=== PATIENT | female | born 1985 | race American Indian/Alaskan Native ===

== ENCOUNTER 2025-01-10 06:58 | Emergency (ER) | payer MEDICAID, SELFPAY ==
[2025-01-10 07:00] VITALS: BMI 37.4
--- NOTE | 2025-01-10 07:24 | XR_ITS ---
Examination: Hand, right 3 views Technique: Hand AP, oblique, lateral 3 views Date and time of exam: January 10, 2025 0630 hrs. Indications: Patient fell today with injury to the hand, hand pain Findings: Acute comminuted fractures proximal aspect proximal phalanx fifth digit, minimal offset on the oblique view No foreign body No dislocation Impression: Acute comminuted fractures proximal phalanx fifth digit
[2025-01-10 07:29] VITALS: BP 125/81; PULSE 89; RESP 18; TEMP 36.7; O2SAT 99
--- NOTE | 2025-01-10 07:47 | EDNOTE_ITS ---
ED Fall Injury RME/HPI General Chief Complaint: Fall Stated Complaint: RT 5TH DIGIT INJURY Time Seen by Provider: 01/10/25 07:03 Arrival date/time: 01/10/25 06:58 39-year-old female presents to the emergency department today stating that she had a trip and fall last night patient reports injury to the left side of her face as well as her right hand. Limitations: no limitations Related Data Previous Rx's ?Medication ?Instructions ?Recorded pantoprazole 40 mg tablet,delayed 40 mg PO BID 30 days #60 tabs 11/07/23 release cephalexin 500 mg capsule 500 mg PO BID 5 days #10 cap s 01/10/25 hydrocodone 5 mg-acetaminophen 325 1 tab PO BID PRN pa in #10 tabs 01/10/25 mg tablet ibuprofen 800 mg tablet 800 mg PO TID PRN pain #30 t abs 01/10/25 Allergies Allergy/AdvReac Type Severity Reaction Status Date / Time bee venom protein (honey bee) Allergy Severe Swelling Unverified 11/08/23 09:01 of Lip/Tongue/Throat blueberry Allergy Severe SWELLING,HI Verified 11/05/23 10:20 VES Review of Systems Review of Systems Systems Reviewed: All systems reviewed, normal except as documented Constitutional Constitutional: Reports system reviewed and no additional complaints, except as documented, Denies fever(s) and Denies headache(s) Eyes Eyes: Reports system reviewed and no additional complaints, except as documented and Denies blurry vision ENT Ears, Nose, Mouth, and Throat: Reports system reviewed and no additional complaints, except as documented, Denies headache(s), Denies nasal congestion and Denies nasal discharge Cardiovascular Cardiovascular: Reports system reviewed and no additional complaints, except as documented, Denies chest pain and Denies dyspnea Respiratory Respiratory: Reports system reviewed and no additional complaints, except as documented, Denies chest congestion, Denies cough and Denies dyspnea Gastrointestinal Gastrointestinal: Reports system reviewed and no additional complaints, except as documented and Denies abdominal pain Musculoskeletal Musculoskeletal: Reports system reviewed and no additional complaints, except as documented, Reports arthralgias, Reports deformity, Reports joint swelling, Denies numbness, Reports stiffness and Denies tingling Integumentary/Breasts Skin/Breast: Reports system reviewed and no additional complaints, except as documented and Denies rash Neurologic Neurologic: Reports system reviewed and no additional complaints, except as documented, Reports as per HPI, Denies headache(s), Denies numbness and Denies tingling Past Medical History Past Medical History NEUROLOGIC: Negative Neurological Disorders or Seizures CARDIAC: Negative Cardiac Disorders or Congestive Heart Failure RESPIRATORY: Positive Asthma; Negative Chronic Obstructive Pulmonary Disease (COPD) GASTROINTESTINAL: Positive Gastrointestinal Disorders and Ulcer GENITOURINARY: Negative Renal Disease REPRODUCTIVE: Positive Previous Pregnancies MUSCULOSKELETAL: Negative Musculoskeletal Disorders ENDOCRINE: Negative Diabetes Mellitus Type 1 or Diabetes Mellitus Type 2 HEMATOLOGIC: Negative Sickle Cell Disease OTHER HISTORY: Positive Hospitalization; Negative Blood Transfusions or Anesthesia Reactions Social History SMOKING STATUS: Never smoker SUBSTANCE USE: does not use ED Exam General Limitations: Present no limitations General appearance: Present alert and in no apparent distress Expanded Head Exam Head exam physical: Present abrasion Head image: 2 1. Abrasion Eye Eye exam: Present normal appearance, PERRL and EOMI ENT ENT exam: Present normal exam, normal oropharynx and mucous membranes moist Neck Neck exam: Present normal inspection, full ROM and trachea midline Chest Chest inspection: Present normal inspection and symmetric chest wall rise Respiratory Respiratory exam: Present normal lung sounds bilaterally Cardiovascular Cardiovascular exam: Present regular rate, normal rhythm and normal heart sounds Abdominal Exam Abdominal exam: Present soft and normal bowel sounds Extremities Exam Extremities exam: Present tenderness, normal capillary refill and joint swelling Back Exam Back exam: Present normal inspection and full ROM Neurological Exam Neurological exam: Present alert, oriented X3 and CN II-XII intact Psychiatric Psychiatric exam: Present normal affect and normal mood Skin Skin exam: Present warm, dry and other (Abrasions to hands and face) Course Quality Measures none Orders Category Date Time Status XR hand comp RT min 3V Stat Exams 01/10/25 07:24 Completed HYDROcodone*/APAP 5/325 [[place] 5/325] Med 01/10/25 07:24 Discontinued 1 tab PO X1 ONE Tet,Diphth,Pertuss(Acell)-Tdap [Boostrix Vacc] Med 01/10/25 07:24 Discontinued 0.5 ml IMI .ONCE ONE Vital Signs Vital signs: Vital Signs Temperature 98.1 F 01/10/25 07:29 Pulse Rate 89 01/10/25 07:29 Respiratory Rate 18 01/10/25 07:29 Blood Pressure 125/81 01/10/25 07:29 Pulse Oximetry (%) 99 01/10/25 07:29 Oxygen Delivery Method Room Air 01/10/25 07:29 O2 saturation 99% room air within the limits Procedures -ED Splint Fabrication: Pre-Fabricated Type: Finger Protector Reason for Splint: Optimal Positioning and Pain Management Site condition: Abrasion(s) Circulation Distal to Splint: Yes Movement Distal to Splint: Yes Tolerance: Tolerates Well Fall MDM Narrative MDM Narrative:: 39-year-old female presents to the emergency department today stating that she had a trip and fall last night patient reports injury to the left side of her face as well as her right hand. On exam patient is mild angulation right hand fifth digit abrasions to the right hand left side of the face Patient has no abnormal neurological findings patient reports no headache dizziness weakness and patient walks with steady gait Imaging of right hand obtained consistent with fracture right hand fifth digit Patient was given pain medication placed in a splint Patient discharged home in no distress to follow-up with primary care doctor in the next 24 to 48 hours and for any worsening symptoms to return to the ER immediately Patient data External records reviewed:: [facility] previous records Clinical information provided by:: patient Social determinants that could affect healthcare access:: none Patient has the following chronic illnesses:: None How is presenting disease/condition affected by chronic disease/condition?: no chronic disease Evaluation data The following diagnostics were reviewed and interpreted by me:: radiology exam(s) Lab and/or radiology exams considered but not ordered:: Radiology obtained Interpretation Summary: Reviewed by me Medications / Prescriptions Medications or Prescriptions considered but not ordered:: Given Medication administrations:: Medication Administration History Discontinued Medications Hydrocodone Bitart/Acetaminophen (Hydrocodone/Apap 5/325 Tablet) 1 tab PO X1 ONE Stop: 01/10/25 07:25 Last Admin: 01/10/25 07:55 Dose: 1 tab Documented By: PATRICK Diphtheria/Tetanus/Acell Pertussis (Diphth,Pertuss(Acell),Tet Vac 0.5 Ml Syr- Adult) 0.5 ml IMi .ONCE ONE Stop: 01/10/25 07:25 Last Admin: 01/10/25 07:55 Dose: 0.5 ml Documented By: PATRICK Given Consultations Consultation(s) initiated? (list below): No Diagnosis Fall Differential Diagnosis: other (Laceration, abrasion, fracture) Most likely diagnosis given after review of the tests above:: Finger fracture Admission Indicated Admission indicated?: not indicated Admission Request Was there a request for admission?: No Disposition Plan Disposition Plan: Discharge Discharge Attestation Discharge Attestation: The patient and all family members were given an opportunity to ask questions and understood the discharge instructions. Discharge instructions specifically effects, indications for sooner follow up or return to the emergency department, and the expected course of current diagnosis. Patient condition: Stable Discharge Plan Plan Patient Disposition: HOME (Self Care) Disposition Comment: Stable Prescriptions/Referrals Prescriptions/Med Rec: New ibuprofen 800 mg tablet 800 mg PO TID PRN (Reason: pain) Qty: 30 0RF hydrocodone-acetaminophen 5-325 mg tablet 1 tab PO BID MDD 10 PRN (Reason: pain) Qty: 10 0RF cephalexin 500 mg capsule 500 mg PO BID 5 Days Qty: 10 0RF No Action pantoprazole 40 mg tablet,delayed release (DR/EC) 40 mg PO BID 30 Days Qty: 60 1RF Referrals: No Primary/Family,Physician [Primary Care Provider] - In 1 week Problem List Clinical Impression: Fracture of finger of right hand Patient/Caregiver Discharge Instructions Education Materials: ED Fracture, Finger, Closed Additional Instructions: Please follow up with your primary care doctor in the next 24-48hrs for any worsening symptoms return here immediately Print Language: Tongan Stand Alone Forms: Myriam Award Info., Work/School Release, Patient Portal Info Letter RALPH/JEROME Supervising Physician RALPH/JEROME Supervising Physician: Dr. power
[2025-01-10] MEDS: DIPHTH,PERTUSS(ACELL),TET VAC 0.5 ML SYR- ADULT IMi (07:55)
[2025-01-10] MEDS: HYDROcodone/APAP 5/325 TABLET 1 TAB PO (07:55)
== END 2025-01-10 08:07 | disposition home or self-care (01) ==
PROVIDERS: Emergency Provider Family Medicine
DX: S62.616A Displaced fracture of proximal phalanx of right little finger, initial encounter for closed fracture (principal); W01.0XXA Fall on same level from slipping, tripping and stumbling without subsequent striking against object, initial encounter; Z23 Encounter for immunization
CPT/HCPCS: 73130; 90471; 90715; 99283; A9270

== ENCOUNTER 2025-02-17 06:26 | Emergency (ER) | payer MEDICAID, SELFPAY ==
[2025-02-17 06:27] VITALS: BMI 42.5
[2025-02-17 06:44] VITALS: BP 114/83; PULSE 94; RESP 17; TEMP 37.1; O2SAT 97
--- NOTE | 2025-02-17 06:58 | PD.EDRME ---
Rapid Medical Screening Exam RME Arrival date/time: 02/17/25 06:26 This is a 39 year old female with complaints of abdominal pain, n/v/d started 02/12/25. Pt states she was seen by PMD and was dx with norovirus. Pt c/o of diffuse abd pain. Pt has a hx of c section. I have greeted and performed a focused initial assessment of this patient. Initial appropriate labs ordered at this time. A comprehensive ED assessment and evaluation of the patient and analysis of all test and completion of medical decision making process will be conducted by additional ED provider. Chief Complaint: Abdominal Pain Time Seen by Provider: 02/17/25 06:42 Vital signs: Vital Signs Temperature 98.8 F 02/17/25 06:44 Pulse Rate 94 02/17/25 06:44 Respiratory Rate 17 02/17/25 06:44 Blood Pressure 114/83 02/17/25 06:44 Pulse Oximetry (%) 97 02/17/25 06:44 Oxygen Delivery Method Room Air 02/17/25 06:44
[2025-02-17 07:29] LABS: Basophils % (Auto) 0 % (0-2.5); Eosinophils # (Auto) 0.3 Thou/mm3 (0.0-0.5); Eosinophils % (Auto) 3 % (0-10); Hematocrit 31.6 % (36.0-46.0); Hemoglobin 9.3 g/dL (12.0-16.0); Immature Granulocytes % (Auto) 0 % (0-0); Immature Granulocytes Auto 0.03 Thou/mm3 (0.00-0.00); Lymphocytes # (Auto) 2.2 Thou/mm3 (1.0-4.8); Lymphocytes % (Auto) 23 % (10-50); Mean Corpuscular HGB Conc 29.4 g/dl (31.0-37.0); Mean Corpuscular Hemoglobin 20.4 pg (25.0-35.0); Mean Corpuscular Volume 70 fL (80-100); Monocytes # (Auto) 0.5 Thou/mm3 (0.0-0.8); Monocytes % (Auto) 5 % (0-12); Neutrophils # (Auto) 6.5 Thou/mm3 (1.8-7.7); Neutrophils % (Auto) 69 % (37-80); Nucleated Red Blood Cell % 0 /100 WBC (0); Platelet Count 391 Thou/mm3 (140-440); RDW Standard Deviation 41.8 fL (36.4-46.3); Red Blood Count 4.55 Miln/mm3 (4.00-5.20); White Blood Count 9.6 Thou/mm3 (3.6-11.0)
[2025-02-17 07:46] LABS: Alanine Aminotransferase 19 U/L (10-49); Albumin, Serum 4.5 gm/dL (3.5-5.0); Albumin/Globulin Ratio 1.5 (1.2-2.2); Alkaline Phosphatase 70 U/L (46-116); Anion Gap 9 (7-16); Aspartate Amino Transferase 14 U/L (0-34); BUN/Creatinine Ratio 9 Ratio (12-20); Bilirubin,Total 0.6 mg/dL (0.3-1.2); Blood Urea Nitrogen 10 mg/dL (9-23); Calcium 8.9 mg/dL (8.3-10.6); Calcium (Corrected) 8.9 mg/dL (8.5-10.1); Carbon Dioxide 23.1 mMol/L (20.0-31.0); Chloride 104 mMol/L (98-107); Creatinine (Component) 1.1 mg/dL (0.6-1.3); Estimated Creatinine Clearance 75.3 mL/min (>60); Glucose 102 mg/dL (74-106); Lipase 33 U/L (12-53); Osmolality,Calculated 270 (275-295); Potassium 3.8 mMol/L (3.4-5.1); Sodium 136 mMol/L (136-145); Total Protein 7.5 gm/dL (5.7-8.2); eGFR > 60 See Note
[2025-02-17 07:53] LABS: HCG,Qualitative Serum Negative
[2025-02-17 08:29] LABS: Collection Type, Urine Voided
[2025-02-17 08:50] LABS: Amorphous Crystals,Urine Present (Absent); Bacteria,Urine 1+; Bilirubin,Urine Negative (Negative); Blood,Urine Trace (Negative); Clarity,Urine Turbid (Clear/Hazy); Color,Urine Yellow (Lt Yel-Yel); Glucose, Urine Negative (Negative); Ketones,Urine Negative (Negative); Leukocyte Esterase,Urine Positive (Negative); Nitrite,Urine Negative (Negative); Protein,Urine Trace (Neg - Trace); RBC,Urine 32 /hpf (0-3); Squamous Epithelial Cell,Urine 10 /hpf (0-5); Urobilinogen,Urine Negative mg/dL (0.0-1.0); WBC,Urine 105 /hpf (0-5)
[2025-02-17 08:57] LABS: Culture Indicated,Urine Yes
[2025-02-17 11:21] VITALS: BP 129/86; PULSE 77; RESP 18; TEMP 36.8; O2SAT 99
--- NOTE | 2025-02-17 12:41 | EDNOTE_ITS ---
<Statement entered by Judy Batista MD - 02/17/25 14:25> As co-signing physician, I was present and available for consult prn. I concur with the plan and care as documented by the midlevel provider. ED Abdominal Pain RME/HPI General Chief Complaint: Abdominal Pain Stated complaint: VOMITING, DIARRHEA ABD PAIN Time seen by provider: 02/17/25 06:42 Arrival date/time: 02/17/25 06:26 RME / HPI RME / HPI narrative: 39-year-old female patient came in for evaluation regarding diarrhea. Patient's been having diarrhea for the last 5 days, associated with nausea vomiting nonbloody. Denies any fevers denies any other complaints was seen by PCP and was diagnosed with norovirus. No medications taken prior to ER visit. Related Data Previous Rx's ?Medication ?Instructions ?Recorded pantoprazole 40 mg tablet,delayed 40 mg PO BID 30 days #60 tabs 11/07/23 release hydrocodone 5 mg-acetaminophen 325 1 tab PO BID PRN pa in #10 tabs 01/10/25 mg tablet ibuprofen 800 mg tablet 800 mg PO TID PRN pain #30 t abs 01/10/25 ciprofloxacin HCl 500 mg tablet 500 mg PO BID #14 tabs 02/17/25 (Cipro) metoclopramide HCl 10 mg tablet 10 mg PO Q6H PRN nause a and 02/17/25 (Reglan) vomiting #20 tabs Allergies Allergy/AdvReac Type Severity Reaction Status Date / Time bee venom protein (honey bee) Allergy Severe Swelling Unverified 11/08/23 09:01 of Lip/Tongue/Throat blueberry Allergy Severe SWELLING,HI Verified 11/05/23 10:20 VES Review of Systems Review of Systems Narrative Review of Systems: Review of system reviewed and within normal limits except mentioned in HPI ED Exam Narrative Physical exam: VITAL SIGNS: Reviewed. GENERAL APPEARANCE: Alert and interactive, follows commands, no acute distress, HEAD AND FACE: Non-traumatic. ENT: PERRL, pink conjunctivitis, eyelid no trauma, Mucous membrane moist. NECK: Supple, nontender, no nuchal rigidity. CHEST: No tenderness, no crepitus, no paradoxical movement, no retractions. LUNGS: Clear, well ventilated, symmetric, no rales, no wheezing, no ronchi, no stridor, good breath sounds bilaterally. HEART: Regular rate, regular rhythm, no murmur, no gallops. ABDOMEN: Soft, positive bowel sounds, nondistended, no guarding, nontender, no rebound, no masses, RECTAL: Deferred. GENITAL: Deferred. NEUROLOGICAL: Gross motor function intact sensory function intact, Appropriate for age. MUSCULOSKELETAL: low back nontender, full range of motion. EXTREMITIES: Nontender, full range of motion. SKIN: Color pink, dry, no rash, no lacerations, no abrasions, no contusions. LYMPHATICS: Deferred. Course Quality Measures none Orders Category Date Time Status CBC Stat Lab 02/17/25 07:05 Completed Comprehensive Metabolic Panel Stat Lab 02/17/25 07:05 Completed HCG,Qualitative Serum Stat Lab 02/17/25 07:05 Completed Lipase Stat Lab 02/17/25 07:05 Completed Urinalysis, C/S if Indicated Stat Lab 02/17/25 07:30 Completed Urine Culture Stat Lab 02/17/25 07:30 Received 1,000 mg IM w/Lido* 1% Med 02/17/25 12:41 Ordered cefTRIAXone [Rocephin] 1,000 mg Lidocaine 1% 20 ml [Xylocaine 1% 20 ML] 2.1 ml IM X1 Vital Signs Vital signs: Vital Signs Temperature 98.8 F 02/17/25 06:44 Pulse Rate 94 02/17/25 06:44 Respiratory Rate 17 02/17/25 06:44 Blood Pressure 114/83 02/17/25 06:44 Pulse Oximetry (%) 97 02/17/25 06:44 Oxygen Delivery Method Room Air 02/17/25 06:44 Abdominal Pain MDM MDM Narrative MDM Narrative:: 39-year-old female patient came in for evaluation regarding diarrhea. Patient's been having diarrhea for the last 5 days, associated with nausea vomiting nonbloody. Denies any fevers denies any other complaints was seen by PCP and was diagnosed with norovirus. No medications taken prior to ER visit. Laboratory workup is significant for UTI. Patient received ceftriaxone IM. Patient is tolerating p.o. fluids in the emergency room. Patient data External records reviewed:: None Clinical information provided by:: patient Social determinants that could affect healthcare access:: none Patient has the following chronic illnesses:: None How is presenting disease/condition affected by chronic disease/condition?: no chronic disease Evaluation data The following diagnostics were reviewed and interpreted by me:: lab results Lab and/or radiology exams considered but not ordered:: None Interpretation Summary: See results MDM Medications / Prescriptions Medications or Prescriptions considered but not ordered:: None Medication administrations:: Ceftriaxone IM Consultations Consultation(s) initiated? (list below): No Diagnosis Differential diagnosis abdominal pain: abdominal pain and gastroenteritis Most likely diagnosis given after review of the tests above:: Gastroenteritis, UTI Admission Indicated Admission indicated?: not indicated Explain why admission is indicated or not indicated:: Stable Admission Request Was there a request for admission?: No Disposition Plan Disposition Plan: Discharge Discharge Attestation Discharge Attestation: The patient was given an opportunity to ask questions and understood the discharge instructions. Discharge instructions specifically effects, indications for sooner follow up or return to the emergency department, and the expected course of current diagnosis. Patient condition: Stable Discharge Plan Plan Patient Disposition: HOME (Self Care) Disposition Comment: stable Prescriptions/Referrals Prescriptions/Med Rec: New ciprofloxacin HCl [Cipro] 500 mg tablet 500 mg PO BID Qty: 14 0RF metoclopramide HCl [Reglan] 10 mg tablet 10 mg PO Q6H PRN (Reason: nausea and vomiting) Qty: 20 0RF No Action ibuprofen 800 mg tablet 800 mg PO TID PRN (Reason: pain) Qty: 30 0RF hydrocodone-acetaminophen 5-325 mg tablet 1 tab PO BID MDD 10 PRN (Reason: pain) Qty: 10 0RF pantoprazole 40 mg tablet,delayed release (DR/EC) 40 mg PO BID 30 Days Qty: 60 1RF Referrals: Mikaela Mims PA-C ([facility]) [Primary Care Provider] - In 1 week Problem List Clinical Impression: UTI (urinary tract infection), Gastroenteritis Patient/Caregiver Discharge Instructions Discharge Activity: activity as tolerated Education Materials: Understanding Urinary Tract ... Additional Instructions: Thank you for the opportunity for serving you today. You are stable for disc harged . You are advised to: Follow-up with your PCP in 1 to 2 days Return to ED for worsening of symptoms Increase oral fluids Take medication as prescribed Print Language: Togolese Stand Alone Forms: Myriam Award Info., Patient Portal Info Letter RALPH/JEROME Supervising Physician RALPH/JEROME Supervising Physician: MD Bakari
--- NOTE | 2025-02-17 13:40 | PC.NURSE ---
no answer x1 at 1340. checked outside and lobby.
--- NOTE | 2025-02-17 14:33 | PC.NURSE ---
no answer x 2 at 1430. checked outside and lobby
--- NOTE | 2025-02-17 14:45 | PC.NURSE ---
no answer x 3. checked lobby and outside. patient eloped. notified provider.
== END 2025-02-17 14:46 | disposition home or self-care (01) ==
PROVIDERS: Nurse Practitioner Family; Emergency Provider Emergency Medicine; PCP Nurse Practitioner Family
DX: K52.9 Noninfective gastroenteritis and colitis, unspecified (principal); N39.0 Urinary tract infection, site not specified
CPT/HCPCS: 36415; 80053; 81001; 83690; 84703; 85025; 87086; 99283